=== PATIENT | female | born 1960 | race Caucasian/White ===

== ENCOUNTER 2022-07-03 18:42 | Inpatient (IN) | payer OTHER ==
[~2022-07-03] VITALS: Ht 162.6 cm; Wt 63.4 kg
--- NOTE | 2022-07-04 01:15 | NUR ---
BEDISED REPORT RECEIVED FROM OSVALDO Weeks RN IN THE ER. PT TRANSPORTED VIA STRETCHER BY THIS RN TO MED SURG ROOM 118.
--- NOTE | 2022-07-04 01:55 | NUR ---
PT ASSESSMENT COMPLETE. PT HAS BEEN HEAVILY MEDICATED WITH IV PAIN MEDS AND ATIVAN FOR HER PAIN AND AGITATION WITH THE PAIN, HARD TO OBTAIN MEDICAL HX FROM PATIENT, SHE DOES DENY HAVING ANY FAMILY GIVES A PHONE NUMBER FOR A FRIEND TO MARIA D Hoyos RN CHARGE NURSE AND GIVES PERMISSION TO CALL. PT HAS COME FROM ER WITH A AYALA, THIS WAS DRAINED UPON ARRIVAL TO ROOM. PT HAS TWO PATENT IV SITES. PT'S SKIN CHECKED NO SIGNS OF SKIN BREAKDOWN. PT'S ABDOMEN IS DISTENDED AND "HARD"
--- NOTE | 2022-07-04 02:19 | NUR ---
CHECKED IN ONPATIENT SHE IS ASLEEP, HER EYES ARE CLOSED AND SHE IS SNORING, RESPIRATORY RATE IN MID 20'S, HAS OXY MASK TO FACE FOR HER COMFORT. RAILS UP X 4 FOR HER SAFETY. BED ALARMS ARE ON.
--- NOTE | 2022-07-04 02:48 | NUR ---
PT SET UP ON THE STAFF HOME THERAPY RN,PT IS QUITE DROWSY BUT WAKES UP. MARIA D BURGESS INSTRUCTING PT ON STAFF HOME THERAPY RN USE ON HOW TO USE TO BUTTON, PT NODS IN UNDERSTANDING AND PUSHES BUTTON.
--- NOTE | 2022-07-04 02:57 | NUR ---
WALKED INTO ROOM, WHICH HAS BEEN DARKENED FRO PT COMFORT. PT HAS DIRECTOR NEW PRODUCT BUTTON WITH HAD ON IT, HER EYES ARE CLOSED, RR, 22. CAN BE HEARD SNORING OCCASIONALLY.
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
--- NOTE | 2022-07-04 03:37 | NUR ---
PT CONTINUES TO SLEEP, RR 26, HAS OXY MASK. PT HAS PRECISION INSTRUMENT AND TOOL MAKER BUTTON IN HER LEFT HAND. PT IS NOT MOANING OR WRITHING.
--- NOTE | 2022-07-04 03:39 | NUR ---
CALLED THE [phone], LEFT A MESSAGE PER PT REQUEST.
--- NOTE | 2022-07-04 05:16 | NUR ---
CHECKED ON PATIENT. REMAINS SUPINE ON BED, HOB SLIGHTLY ELVATED, OXYMASK ON [address] RESPIRATIONS 24, PATIENT SNORING. BRADLEY LINEBACKER CREWMEMBER BUTTON REMAINS IN HER LEFT HAND
--- NOTE | 2022-07-04 06:00 | NUR ---
IN ROOM WITH MARIA D BURGESS, CHARGE NURSE. BEATER OPERATOR PUMP CLEARED FOR THIS SHIFT AT 0.8 MG. PT IS ASLEEP BUT OPENS EYES AND PT ASKED HOW SHE WAS DOING ASKED IF SHE WAS IN ANY PAIN NODS HER HEAD "NO" AND ASKED IF SHE NEEDS TO PUSH HER BEATER OPERATOR BUTTON SHE SHAKES HER HEAD "NO" PT APPEARS TO BE COMFORTABLE IS NOT MOANING OR WRISTHING AROUND PT EXHIBITED IN ER AND WHEN SHE WAS ADMITTED. CALL LIGHT IS IN REACH, BEATER OPERATOR BUTTON IN HER LEFT HAND PT NODDED HER HEAD "YES" WHEN ASKED IF SHE UNDERSTOOD USING THE BUTTON FOR THE BEATER OPERATOR.
--- NOTE | 2022-07-04 07:16 | NUR ---
REPORT RECEIVED FROM ADITYA BRUSH. PT RESTING IN BED ON BACK. PT NONVERBAL BUT NODS AND SHAKES HER HEAD IN ANSWER TO QUESTIONS. PT DENIES PAIN AND NAUSEA. PT REQUESTS CHAPSTICK FOR DRY LIPS. PT REMAIN ON 1L O2 BY OXYMASK FOR COMFORT. TRAVEL MANAGER IN PLACE. CALL BUTTON IN PTS HAND. TRAVEL MANAGER BUTTON IN PTS HAND. NO ADDIITONAL NEEDS AT THIS TIME. BED RAILS UP.
--- NOTE | 2022-07-04 10:05 | NUR ---
THIS RN TO ROOM TO CHECK ON PT. PT VISITING WITH DESMOND. PT ABOE TO TALK WITH CLIN NURSE IN SHORT PHRASE SEGEMENTS. INFORMATION GIVEN TO CHAPFLETCHER FROM PT REGARDING CONTACTS TO FRIENDS. PT REPORTS 3/10 PAIN ABDOMEN, ESPICALLY RIGHT SIDE. PT USING TECHNICAL SOLUTION ARCHITECT PUMP AND PUSHING HER BUTTON PRN. PT OREINTED TO ALL. ANSWERS QUESTIONS APPRPRIATLY. PT VERBALIZES UNDERSTANDING OF PLAN OF CARE/COMFORT. PT CONTINUES TO REPORT SEVERE PAIN IF MOVED AND REQUESTS TO REMAIN IN SUPIN POSITION WIHT HEAD OF BED ELEVATED TO 19 DEGREES. PT REMAINS IN THIS POSITION PER REQUEST. RR OF 20. PT REMAINS ON 1L O2 BY OXYMASK FOR COMFORT, ORAL CARE PROVIDED WITH SUCTION IN PLACE. MOUTH MOISTERIZER APPLIED. CHAP SITCK APPLIED. FACE, FEET AND HANDS WASHED, LOTION APPLIED. CLOUDY YELLOW URINE NOTED IN AYALA CATHETER. 75ML CLOUDY YELLOW URINE REMOVED FROM AYALA CATHETER. ICE CHIPS PROVIDED PER PT REQUEST. NO ADDITIONAL NEEDS AT THIS TIME. CALL LIGHT WITHIN REACH. BED RAILS UP. BED ALARM ON.
--- NOTE | 2022-07-04 11:32 | NUR ---
PATIENT RESTING PEACEFULLY. MOLDED FRAMES ASSEMBLER AND CALL BUTTON IN REACH. PATIENT ABLE TO EAT ICE CHIPS INDEPENDENTLY. DENIES NEEDS AT THIS TIME
--- NOTE | 2022-07-04 12:34 | NUR ---
PATIENT RESTING. DENIES PAIN AT THIS TIME. CONCRETE BLOCK MASON BUTTON AND CALL LIGHT IN REACH. REPORTS COMFORTABLE AT THIS TIME AND REQUEST NOT TO BE REPOSITIONED
--- NOTE | 2022-07-04 12:51 | NUR ---
THIS RN TO ROOM TO CHECK ON PT. PT RPEORTS PAIN IS WELL CONTROLLED WITH ROUGH ROUNDER MACHINE PUMP. PT THEN BEGINGS VOMITING BRIGHT GREEN FLUID ~300ML. HEAD OF BED LIFTED. SUCTION APPLIED. MEDICAITON GIVEN (SEE MAR). IV ASSESSED FOR BLOOD REUTRN EVERY 5ML OF PHENEGRAN INFUSION, BLOOD RETURN NOTED EACH TIME. IV FLUSHED AND SALINE LOCKED, ALCOHOL CAP APPLIED. ORAL CARE DONE WITH SUCION IN PLACE INCLUDING MOUTH WASH, TOOTH BRUSH, AND MOUTH MOISTURIZER. PT REPORTS "THAT FEELS BETTER." PT REPORTS PAIN AFTER EMESIS , ROUGH ROUNDER MACHINE BUTTON ENCROAUGED WHICH PT USES. NO ADDITIONAL NEEDS AT THIS TIME. CALL LIGHT WITHIN REACH. BED RAILS UP.
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
--- NOTE | 2022-07-04 14:33 | NUR ---
THIS RN TO ROOM TO CHECK ON PT. PT USES CALL LIGHT TO ASK FOR ICE CHIPS. ICE CHIPS PROVIDED. PT DENIES NAUSEA. PT REPORTS "IT HURTS RIGHT HERE." POINTING TO RIGHT SIDE OF ABDOMEN. PT ENCORUAGED TO PUSH ICE HANDLER BUTTON WHICH SHE DOES. FLACC SCORE OF 2/10. PT DROWSY BUT ARROUSABLE. PT DRIFTS BACK TO RESTING WITH WITH EYES CLOSED, RESPRIATIONS EVEN AND UNLABORED. CALL LIGHT IN RIGHT HAND. ICE HANDLER BUTTON IN LFET HAND. NO ADDITIONAL REQUESTS OR COMPLAINTS. BED RAILS UP. BED ALARM ON.
--- NOTE | 2022-07-04 14:58 | NUR ---
IN WITH PASTOR FINNEGAN TO DISCUSS PATIENT WISHES. PATIENT SAID WHEN THE TIME COMES, SHE WOULD LIKE TO BE CREMATED. SHE DOES NOT HAVE A PREFERNCE ON HOMES AND SHE WISHES THAT HER PRAYER SHALL/QUILT BE GIVEN TO HER FRIEND AND THE WHITE AND RED BAG BE LEFT FOR KAIN TO GIVE TO A FRIEND WELL. (KAIN WILL TAKE QUILT AND BAG AND MAKE SURE IT GETS TO PATIENTS FRIEND)
--- NOTE | 2022-07-04 15:03 | NUR ---
PT HAS DECIDED TO GO ON COMFORT CARE. PT HAS DECIDED TO BE CREMATED AND BE BURIED WITH FRIEND DONNA IF WE CAN LOCATE HIM. PT REQUESTED HER PRAYER QUILT BE GIVEN TO HER FRIEND JACIEL. WILL MAKE THAT HAPPEN. HAD PRAYER WITH PT, WILL UPDATE MACHINE GROUP LEADER ROLLER STAKER
--- NOTE | 2022-07-04 15:13 | NUR ---
THIS RN TO ROOM TO CHECK ON PT. PT RESTING WITH EYES CLOSED, RESPIRATIONS EVEN AND UNLABORED. RASS SCORE OF -1. FLACC SCORE OF 1/10 FOR OCCATIONAL GRIMACE. NO ADDITIONAL NEEDS AT THIS TIME. PT ALLOWED TO REST UNDESTURBED. CALL LIGTHW IN RIGHT HAND. ARTILLERY SPECIALIST BUTTON NEAR LFT HAND. BED RAILS UP. BED ALARM ON.
--- NOTE | 2022-07-04 15:21 | NUR ---
CNDIPIKA IN WITH PT CHECKING VSS WHILE I WAS VISITING WITH PT REGARDING END OF LIFE DECISIONS
--- NOTE | 2022-07-04 16:09 | NUR ---
THIS RN TO ROOM TO CHECK ON PT. PT RESTING IN BED WITH EYES CLOSED, RESPIRATIONS EVEN AND UNLABORED. HEAD OF BED ELEVATED TO 35 DEGREES. FLACC SCORE OF 0/10. RASS SCORE OF -1. PT RESPONDS TO TOUCH BUT REMAINS ASLEEP. CALL LIGHT IN RIGHT HAND. SPINNER HYDRAULIC BUTTON IN LEFT HAND. NO ADDITIONAL NEEDS AT THIS TIME. BED RAILS UP.
--- NOTE | 2022-07-04 17:09 | NUR ---
PT HERE FOR COMFORT CARE AND PAIN CONTROL. PT REMAINS ON BED REST THIS SHIFT AND DECLINES REPOSITIONING. RASS SCORES OF -1 THROUGHOUT SHIFT. GREEN EMESIS NOTED THIS SHIFT WITH PRN NAUSEA MEDICAITONS GIVEN. STONE MILL OPERATOR PAIN PUMP REMAINS IN PLACE WITH PT PUSH BUTTON APPROPRIATLY. ORAL CARE DONE X2 WITH SUCTION IN PLACE. ABDOMEN VERY DISTENDED AND PAINFUL WITH ANY PALPATION. PASTROAL CARE TO BEDSIDE AND ASSISTING PT WITH CONTACTING LOVED ONES. PT REMAINS OREINTED AND RESPONDING TO QUESTIONS APPROPRAILTY. AYALA CATHETER IN PLACE WITH INSUFFICIENT CLOUDY YELLOW URINE. PT USING 1L O2 BY OXYMASK FOR COMFORT. PT USES CALL LIGHT INCONSISTANTLY. INTENTIONAL ROUNDING TO MEET NEEDS.
--- NOTE | 2022-07-04 17:15 | NUR ---
MED REC COMPLETE
--- NOTE | 2022-07-04 17:55 | NUR ---
THIS RN TO ROOM TO CHECK ON PT. VOYAGE MANAGEMENT SYSTEM OPERATOR PUMP ALARMING, NEW CARTRIAGE NEEDED. VOYAGE MANAGEMENT SYSTEM OPERATOR CLEARED OF 4.7MG DELIVERED SO FAR THIS SHIFT. VOYAGE MANAGEMENT SYSTEM OPERATOR STATES: COMPLETED 11, PARTIAL 1, AND DENIED 1. PT RESTING WITH EYES CLOSED, RESPIRATIONS EVEN AND UNLABORED. PT DOES NOT AWAKEN TO VOICES IN ROOM. PT ALLOWED TO REST. CALL LIGHT WIHTIN REACH. BED RAILS UP.
--- NOTE | 2022-07-04 18:14 | NUR ---
Checked with BRYAN at [facility] to see if they could possibly take a comfort care pt. He states he doesn't think they will have any more beds open this week.
--- NOTE | 2022-07-04 18:45 | NUR ---
THIS RN TO ROOM TO CHECK ON PT. PT RESTING WITH EYES CLOSED, RESPIRATIONS EVEN AND UNLABORED. PT AWAKENS TO VOICE AND LIGHT TOUCH. RASS SCORE OF -1. PT DENIES PAIN AND NAUSEA. CATHETER CARE DONE. AYALA CATHETER EMPITED OF 78ML CLOUDY YELLOW URINE. PT DRIFTS BACK TO SLEEP QUICKLY. FACE WASHED PER PT REQUEST. NO ADDITIONAL NEEDS AT THIS TIME. CALL LIGHT WIHTIN REACH. BED RAILS UP.
--- NOTE | 2022-07-04 19:58 | NUR ---
RECEIVED REPORT FROM DAY SHIFT RN. PATIENT IS RESTING IN BED WITH EYES CLSOED, RR 21. CALL LIGHT IN REACH.K PHYSIOTHERAPY PRACTICE MANAGER BUTTON IN REACH.
--- NOTE | 2022-07-04 21:08 | NUR ---
PATIENT REPOSITIONED IN BED. AYALA EMPTIED. INTAKE AND OUTPUT RECORDED. PATIENT PROVIDED ICE CHIPS. PATIENT DENIES ANY NEEDS. CALL LIGHT AND CERTIFIED REGISTERED NURSE ANESTHETIST BUTTON IN REACH. PATIENT GIVEN PRN MEDICATION FOR ANXIETY.
--- NOTE | 2022-07-04 23:09 | NUR ---
PATIENT IS RESTING IN BED, RR 19. PATIENT APPEARS COMFORTABLE. CALL LIGHT AND NEUROLOGY TEACHER BUTTON IN REACH.
--- NOTE | 2022-07-05 00:32 | NUR ---
PATIENT IS RESTING IN BED WITH EYES CLSOED, RR 19. CALL LIGHT AND PC ABUTTON IN REACH. BED ALARM ON FOR SAFETY.
--- NOTE | 2022-07-05 06:34 | NUR ---
[facility] DOWNTIME [phone], SEE PAPER CHARTING.
--- NOTE | 2022-07-05 06:52 | NUR ---
PATIENT WISHES TO NOT WEAR HER OXYGEN ANYMORE. PRN ANXIETY MEDICATION GIVEN PER ORDER. NO FURTHER NEEDS NOTED. CALL LIGHT IN REACH. COMPOSITE BOND TECHNICIAN BUTTON IN REACH. BED ALARM ON FOR SAFETY.
--- NOTE | 2022-07-05 07:14 | NUR ---
RECEIVED REPORT FROM TERESA BURGESS. PATIENT RESTING. NO S/S OF PAIN OR DISTRESS. ADMINISTRATIVE SUPPORT MANAGER BUTTON IN REACH. CALL LIGHT IN REACH. BED RAILS UP.
--- NOTE | 2022-07-05 08:30 | NUR ---
PATIENT RESTING. DENIES PAIN OR DISCOMFORT WHEN ASKED. PATIENT HAS CALL LIGHT IN REACH AND WARDROBE ASSISTANT IN HAND. BED RAILS UP
--- NOTE | 2022-07-05 09:10 | NUR ---
PATIENT RESTING. NO S/S OF PAIN OR DISCOMFORT. PATIENT HAS CLIENT DEVELOPMENT CONSULTANT BUTTON IN HAND. PATIENT EASILY AROUSED WITH VERALE STIMULI. CALL LIGHT IN REACH
--- NOTE | 2022-07-05 10:13 | NUR ---
ORAL CAN CATH CARE COMPLETE. PATIENT SHAKES HEAD "NO" WHEN ASKED IF SHE IS IN PLAN. LEAD INSTALLER BUTTON IN HAND. PATIENT HAS LOWER URINE OUTPUT, CLOUDY URINE. WHEN ASKED IF SHE WOULD LIKE RESPOSITIONING PATIENT SHOOK HEAD "NO". NO OTHER NEEDS AT THIS TIME
--- NOTE | 2022-07-05 11:22 | NUR ---
PATIENT RESTING. NO S/S OF PAIN OR DISCOMFORT. PATIENT REQUEST NOT TO BE REPOSITIONED AT THIS TIME. EASILY AROUSED WITH VERBAL STIMULI. CALL LIGHT AND POWDER MIXER BUTTON IN REACH.
--- NOTE | 2022-07-05 12:02 | NUR ---
PATIENT RESTING. WHEN ASK IF SHE HAS PAIN, PATIENT SHOOK HER HEAD "YES". REMINDED PATIENT TO PUSH SMALL PACKAGE AND BUNDLE SORTER CLERK BUTTON. PATIENT WEAKER TODAY THAN YESTERDAY. PATIENT WARM TO TOUCH, 99.1F TEMPORAL. ASKED PATIENT IF SHE WANTS A COOL RAG ON HER HEAD, PATIENT STATED "YES". LOW URINE OUTPUT. PATIENT REFUSED SENNA AND DOES NOT WANT TO BE REPOSITIONED AT THIS TIME. CALL LIGHT IN REACH
--- NOTE | 2022-07-05 14:20 | NUR ---
SPIRITAL CARE AT BEDSIDE. PATIENT TACHYPNEIC RESPIRATIONS 26bpm. PATIENT REQUEST OXY MASK FOR COMFORT. ORAL CARE COMPLETE. PATIENT REPOSITIONED. CALL LIGHT AND METAL CASKET ASSEMBLER BUTTON IN REACH
--- NOTE | 2022-07-05 14:23 | NUR ---
ADTIYA BUI IN TO PT'S RM WITH ME. PT SEEMS MUCH WEAKER TODAY, ASKED IF SHE WOULD LIKE O2 MASK-KNODDED YES. ADITYA BUI PLACED. HAD PRAYER WITH PT, VERY DIFFICULT FOR PT TO GET ANY WORDS OUT. PT HELD MY HAND I VOICED A PRAYER. SHE SMILED. GAVE BLESSING AND WILL FOLLOW
--- NOTE | 2022-07-05 15:07 | NUR ---
PATIENT RESPIRATION RATE IS 24-26 bpm. PATIENT GIVEN ATIVIAN FOR COMFORT. OXY MASK IN PLACE FOR COMFORT AT 1L. CALL LIGHT AND AUTOMOTIVE SALES ASSOCIATE BUTTON IN REACH. BED RAILS UP
--- NOTE | 2022-07-05 16:00 | NUR ---
[facility]ed [facility] and spoke with Aaliyah Crews, they do not have this pt in their system. Pt or family would need to be able to give them financial info to start process for correction medicaid for placement.
--- NOTE | 2022-07-05 16:30 | NUR ---
Discussed this pt. with Nadege Ku, management. Lupe was able to sign pt up for DMAP. has spoken with pt and her friend. Pt does not appear to have any family in the area. I called and spoke with the [facility] in [place], [place]. It is unclear if they accept [place] Medicaid, but they did agree to review the chart. Chart faxed to [phone]. Phone number [phone].
--- NOTE | 2022-07-05 16:59 | NUR ---
PATIENT WEAKER TODAY THAN YESTERDAY AND LESS VERBAL. ORAL CARE PROVIDED X 2. PATIENT PROVIDED ICE CHIPS. URINE CATH DRAINING LOW URINE OUTPUT OF 50 MLS THIS SHIFT OF PURLENT URINE. DESIGN SUPERVISOR SYRINGE REPLACE AND PUMP CLEARED. PATIENT REPOSITIONED AT THIS TIME WITH BEEF TRIMMER ASSIST. PASTROL CARE VISITED. KAIN FROM [facility] REPORTS WHEN THE PATIENT PASSES BLANKET AND SOME BELONGINGS NEED TO BE PLACED IN PASTROL CARE OFFICE. PATIENT HAS SPOKEN WISHES OF WHERE THEY WILL BE SENT. CALL LIGHT AND DESIGN SUPERVISOR BUTTON IN REACH
--- NOTE | 2022-07-05 19:24 | NUR ---
BEDSIDE REPORT RECEIVED FROM RAMYA BURGESS. CARE TO BE RESUMED BY THIS RN AT THIS TIME. PT RESTING IN BED, RR 24. OXY MASK PLACED FOR COMFORT AND ICE CHIPS OFFERED. EDUCATED PT ON USE OF PROMOTION MANAGER. PT RESPONDING WITH HEAD NODS BUT NO VERBAL RESPONSE. CALL LIGHT IN REACH.
--- NOTE | 2022-07-05 20:52 | NUR ---
PT RESTING IN BED WITH EYES CLOSED, RR 19. PERSONAL AND ORAL CARE COMPLETED. COLD WASHCLOTH PLACED ON FOREHEAD FOR COMFORT. PT REPOSITIONED AND ICE CHIPS OFFERED. ATIVAN GIVEN FOR COMFORT PER ORDER. NO FURTHER NEEDS AT THIS TIME. CALL LIGHT AND SETTER COLD ROLLING MACHINE BUTTON IN REACH. BED ALARM ON FOR SAFETY.
--- NOTE | 2022-07-05 21:33 | NUR ---
PT RESTING IN BED WITH EYES CLOSED, RR 17. TEST GRADER BUTTON AND CALL LIGHT IN REACH. NO FURTHER NEEDS AT THIS TIME.
--- NOTE | 2022-07-05 22:18 | NUR ---
PT RESTING IN BED WITH EYES CLOSED, RR 19. COLD WASHCLOTH REPLACED ON FOREHEAD FOR COMFORT. CONTROL SYSTEMS DRAFTING OFFICER BUTTON AND CALL LIGHT IN REACH. BED ALARM ON FOR SAFETY.
--- NOTE | 2022-07-05 23:25 | NUR ---
PT RESTING IN BED WITH EYES CLOSED, RR 21. MOUTH CARE PROVIDED. PT AROUSABLE BUT DOES NOT RESPOND VERBALLY. CALL LIGHT AND CORPORATE PILOT BUTTON IN REACH.
--- NOTE | 2022-07-06 01:12 | NUR ---
PT RESTING IN BED WITH EYES CLOSED, RR 23. TEMPURATURE 100.6 F VIA TEMPORAL ROUTE, COLD WASHCLOTHES PLACED ON FOREHEAD AND NECK. DUE TO WORK OF BREATHING AND ANXIOUSNESS, ATIVAN GIVEN PER ORDERS. EDUCATED ON USE OF CABLE ASSEMBLER BUTTON. CABLE ASSEMBLER BUTTON AND CALL LIGHT IN REACH. NO FURTHER NEEDS.
--- NOTE | 2022-07-06 03:25 | NUR ---
PT RESTING IN BED. PT AROUSABLE TO VOICE BUT IS UNABLE TO RESPOND VERBALLY. ORAL CARE PERFORMED AND PT REMINDED OF USE OF HARNESS WORKER. CALL LIGHT IN REACH. NO FURTHER NEEDS AT THIS TIME.
--- NOTE | 2022-07-06 06:00 | NUR ---
PT RESTING IN BED, RR 22. ORAL CARE AND ICE CHIPS PROVIDED. COLD WASHCLOTH PLACED ON FOREHEAD FOR COMFORT. PT UNABLE TO COMMUNICATE VERBALLY BUT AROUSES TO VOICE. EDUCATED ON ELECTRICAL CONTROL ASSEMBLER PUMP AND USE FOR PAIN MANAGEMENT. HR 128, 88% ON RA, 98.8 F AXILLIARY. RESPIRATIONS LABORED AND IRREGULAR. EMPTIED AYALA OF DARK YELLOW URINE WITH THE TOTAL OF 60 CC OUT FOR THE SHIFT. CALL LIGHT IN REACH AND BED ALARM ON FOR SAFETY. DENIES FURTHER NEEDS AT THIS TIME.
--- NOTE | 2022-07-06 07:30 | NUR ---
REPORT RECEIVED. PT LYING IN BED WITH EYES CLOSED. NO SIGNS OF DISCOMFORT PRESENT. DILAUDID LETTER CARRIER INFUSING AT 0.2MLS/HR. NS AT 15ML/HR.
--- NOTE | 2022-07-06 08:30 | NUR ---
ROUNDED ON PT. ASSESSMENT COMPLETED AND DOCUMENTED. RR 20 AT THIS TIME. NO SIGNS OF DISCOMFORT. PT WITH EYES CLOSED AND RELAXED IN BED. INSTRUCTIONAL ASSISTANT INFUSING PER ORDER. WILL CONT TO MONITOR.
--- NOTE | 2022-07-06 09:30 | NUR ---
ROUNDED ON PT. RR 20. PT RELAXED. FLOATED ON PILLOWS. NO CONCERNS. WILL CONT TO MONITOR.
--- NOTE | 2022-07-06 10:30 | NUR ---
ROUNDED ON PT. AYALA WITH 90MLS CLOUDY URINE OUT. PT ABLE TO OPEN EYES TO VERBAL STIMULI, NO RESPONSES. NO ORAL INTAKE. RR 20.
--- NOTE | 2022-07-06 11:30 | NUR ---
ROUNDED ON PT. RR IS 22. ASSSITED WITH CUT OFF TENDER GLASS FOR POSITION CHANGE. AFTER CHANGING PT TO RIGHT SIDE, PT STARTED MOANING CONTINUOULSY. ADIVAN PRN ADMINISTERED. DR IN FOR ROUNDS. DISCUSSED INCLUDING MORPHINE IV PUSH FOR BREAKTHROUGH PAIN. DR AGREES TO PLACE ORDER AND CHANGE LAUNDRY ROUTE DRIVER TO CONTINUOUS ONLY SINCE PT IS NOW UNABLE TO ADMINSTERE SELF BOLUS DOSES. PT MOANING DECREASED AFTER ADIVAN DOSE RR STILL 20. ORAL CARE COMPLETED BY CUT OFF TENDER GLASS.
--- NOTE | 2022-07-06 12:55 | NUR ---
SCRAP BUNCH MAKER CHANGED TO CONTINUOUS RATE ONLY. RR 26. PRN 2MG MORPHINE ADMISNTERED. AFTER 10 MINUTES. RR DECREASED TO 16. PT IS NOT GRIMACINING OR SHOWING SIGNS OF PAIN NOW.
--- NOTE | 2022-07-06 13:00 | NUR ---
Received call from Aaliyah at [facility]. They will accept this pt today. UPdated pt is now on a pain pump and sedated. She she states as pt does not have any family to sign for her, she would need to be awake enough to sign the hospice paperwork. She suggests, pt transition to fentanyl patch and then stop the pain pump. They would take this pt tomorrow if she is awake enough to sign her papers. Charge nurse and Dr. Albert updated and will transition meds. Aaliyah will send the orders [facility] orders with a check list to be completed. Pt will need to go by nonemergent transport if she able to go.
--- NOTE | 2022-07-06 14:00 | NUR ---
Dr. Prince stopped by my office to check on Staci. He is unable to remember if pt has family members since he has not seen her since the late 70's. We have not been successful in finding any family members at this time.
--- NOTE | 2022-07-06 14:14 | CONS ---
[facility] [address], [place] [address] Signed DATE OF CONSULTATION: TIME: 10:30 p.m. PROBLEM: Abdominal distention, large pelvic mass, left perirenal process, and concurrent anemia. HISTORY OF PRESENT ILLNESS: This 62-year-old white woman is known to me in the distant past as a student at [employer], and is a year older than me. I have not seen her since that time (1976). She presented to the emergency room with generalized abdominal pain and distention, was evaluated thoroughly by Dr. Omer and found to be in moderate discomfort from abdominal distention. Additionally, her creatinine was noted to be greater than four. On that basis, she underwent a non IV contrast CT scan of the abdomen, which demonstrated an extremely large pelvic mass emanating higher than the umbilicus (20-week uterus size) as well as bilateral hydroureter with possible caliceal blowout on the left side, possibly related to obstructed ureter at the pelvis bilaterally. Her hemoglobin was noted to be 4 with hematocrit of 15 and on that basis, she has been transfused 2 units of blood. She has not been hypotensive. The patient requested me specifically for evaluation and treatment. On that basis, I am responding to the emergency room consultation. She does have persistent left-sided abdominal pain. No posterior thoracic or lumbar pain. She denies prior surgical intervention of the abdomen in any way. She has never been and currently lives alone. She is return to live in [place] most recently. PHYSICAL EXAMINATION: GENERAL: A relatively thin white woman, who is in moderate discomfort and distress. She is mildly tachypneic. She is alert and oriented, however. NECK: Her trachea is midline. CHEST: Shows shallow rapid breathing to a degree. Pulse is regular. ABDOMEN: Distende and doughy, with tenderness diffusely on the left side. 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 She does have bilateral proximal leg mottling to a degree. Her dorsalis pedis pulse on the left and right is intact 3/3. RADIOGRAPHIC DATA: I reviewed her CT scan in detail. She has a very large pelvic mass, which is smooth in its contour and likely represents the uterus rather than ovarian neoplasm proper. The Electronically Signed By: KAYLEY SANDOVAL MD 07/06/22 1414 PATIENT NAME: MONISHA CASILLAS CONSULTATION DATE OF : 58 REPORT #: [id number] PHYSICIAN: KAYLEY SANDOVAL MD PCP: NO PRIMARY CARE PHYSICIAN REPORT IS CONFIDENTIAL AND NOT TO BE RELEASED WITHOUT AUTHORIZATION [facility] [address], [place] [address] Signed right kidney appears normal. Bilateral hydronephrosis is noted, however, on this noncontrast CT scan, t he left kidney is amorphous in its appearance and given her anemia, concern is maintained for hemorrhage associated with the left kidney and retroperitoneum. Aorta and cava are not easily identified by me and I have yet to see the report of the radiologist, though it has been completed, I am told. ASSESSMENT AND PLAN: The findings noted on her clinical exam as well as imaging studies are concerning not just for what may be a benign, but enlarged pelvic mass causing bilateral ureteral obstruction, but also amorphous findings of the left kidney, which may represent calyceal blowout of the renal pelvis, but may also represent perinephric hemorrhage; definition of the offending lesion is poor on the basis of no GI or IV contrast. The possibility of a myelolipoma of the adrenal with rupture is always a consideration, however, uncommon. Given the bilateral ureteral obstruction, a reasonably probable explanation for the appearance of the left kidney would be calyceal disruption due to excessive hydroureter on the left side. Such a finding would not explain her anemia, however. She is not noted to have any gastrointestinal blood loss, hematemesis, blood per rectum, or other source of known hemorrhage. Her hemodynamics are surprisingly stable and this may represent bleeding that has occurred in a nonacute way. I have recommended to Dr. Omer, emergency room physician that she will be transferred to a higher level of care, for which there will be special expertise for ureteral stenting as appropriate, blood bank with blood products (more than red blood cells) and a consideration for possible angiographic capability for control of hemorrhage if in fact that is the underlying problem. Open operative intervention to control bleeding in the retroperitoneum may be exceedingly challenging under the circumstances of the giant pelvic mass assuming most of the abdominal cavity as noted on the CT scan. Transfusion therapy has been initiated as appropriate and continued monitoring of her hemodynamic status is appropriate as well. MD DENNYS Ribera/MERNAL /[id number] cc: Dr. Omer Electronically Signed By: KAYLEY SADNOVAL MD 07/06/22 1414 PATIENT NAME: MONISHA CASILLAS CONSULTATION DATE OF : 58 REPORT #: [id number] PHYSICIAN: KAYLEY SANDOVAL MD PCP: NO PRIMARY CARE PHYSICIAN REPORT IS CONFIDENTIAL AND NOT TO BE RELEASED WITHOUT AUTHORIZATION [address] [place] [address] Signed Copies: ~ Electronically Signed By: KAYLEY SANDOVAL MD 07/06/22 1414 PATIENT NAME: MONISHA CASILLAS CONSULTATION DATE OF : 58 REPORT #: [id number] PHYSICIAN: KAYLEY SANDOVAL MD PCP: NO PRIMARY CARE PHYSICIAN REPORT IS CONFIDENTIAL AND NOT TO BE RELEASED WITHOUT AUTHORIZATION
--- NOTE | 2022-07-06 15:30 | NUR ---
PAUSED DILAUDID EMAIL ADMINISTRATOR TO SEE IF PT IS ABLE TO WAKE UP TO SIGN PAPERS. AT THIS TIME PT OPENS EYES TO VERBAL STIMULI. DOES NOT RESPOND VERBALLY OR OTHER. WILL CONT TO MONITOR
--- NOTE | 2022-07-06 16:30 | NUR ---
ROUNDED ON PT. PT WAKES TO PAINFUL STIMULI ONLY. RR IS 22. POLICE MANAGER STILL STOPPED AT THIS TIME. REPOSITIONED PT TO BACK.
--- NOTE | 2022-07-06 18:30 | NUR ---
ROUNDED ON PT. PT RR IS 20. PT MOANING. NOT ANSWERING ANY QUESTIONS. RESPONSIVE TO PAINFUL STIMULI. SAYS "YEAH" TO NAME THEN DOES NOT ANSWER DOES NOT OPEN EYES. QUESTIONS OR FOLLOW COMMANDS.
--- NOTE | 2022-07-06 22:05 | NUR ---
Pt IV alarming, in to check on patient, restart TKO IV fluids. Pt is grimacing, breathing 24-26 breaths/minute. Pt turns face toward direction of my voice, nods head when asked if she needs a cool cloth on her forehead, moans out and grimaces. Dilaudid FACILITY MECHANIC had been paused for 4 hours, pt did not wake up enough to answer questions or be conversant, only moaned and nodded when stimulated, did not open her eyes for me or Merry. Merry and I agreed to restart Dilaudid FACILITY MECHANIC for patient comfort for the night, on continuous infusion only at 0.2mg/hr. Dr Albert notified, agrees with plan of comfort for patient for the night and to use PRN medications as ordered for patient comfort.
--- NOTE | 2022-07-07 01:00 | NUR ---
pt with eyes closed, resp @20, laid gown over chest, touched pt hands, no response.
--- NOTE | 2022-07-07 02:39 | NUR ---
PT MEDICATED WITH MORPHINE, ATIVAN. SHE HAD BEEN MOANING LOUDLY, MOVING ARMS. CURRENTLY SHE IS PEACEFUL LOOKING, NO MOVEMENT IN ARMS, HANDS, RESP CONTINUE LABORED, @20
--- NOTE | 2022-07-07 03:44 | NUR ---
EYES CLOSED, RESP EVEN, SL LABORED AT 20. NO MOVEMENT WITH ARMS, EYES WHEN TOUCHED. NO MOANING. SERVER SUPPORT TECHNICIAN DILAUDID INFUSING PER MARS.
--- NOTE | 2022-07-07 04:45 | NUR ---
CHECKED ON PT, SL LABORED @20, EYES CLOSED, SKIN WARM, NOT HOT, BUT PT HAD PULLED GOWN OFF. GOWN UP OVER CHEST WITH ARMS OUT.
--- NOTE | 2022-07-07 06:38 | NUR ---
resp 20, sl labored, moving arms above head, pulling gown. oral care given, medicated with prn morphine. criminal profiler infusing per order.
--- NOTE | 2022-07-07 07:58 | NUR ---
Patient moving arms above head, facial grimacing and moaning noted. Admin prn Ativan 1mg IV at this time. Patient calmed down shortly after ativan admin. No current needs, personal supplies and call light within reach.
--- NOTE | 2022-07-07 08:41 | NUR ---
PATIENT IN BED AFTER BEING REPOSITIONED. AM CARE COMPLETED. CALL LIGHT WITHIN REACH.
--- NOTE | 2022-07-07 09:01 | NUR ---
Patient just repositioned by drilling field professional staff. Patient moving arms and grimacing. Admin Morphine 2mg IV at this time. Patient's respirations 20/min at this time.
--- NOTE | 2022-07-07 09:17 | NUR ---
Per staff, pt has not awakened. Called and spoke with Kamini at the [facility]. UPdated, pt would not be legally able to sign papers and we are cancelling the admission. She states pt has been accepted, if she does awaken, they will hold her papers and take her.
--- NOTE | 2022-07-07 10:12 | NUR ---
PATIENT LYING IN BED. NO VITALS PER NURSE LISANDRA. I/O'S COMPLETED. FACECARE COMPLETED, AND AYALA DRAINED AND DOCUMENTED. PT HAS NO OTHER NEEDS CALL LIGHT IN REACH.
--- NOTE | 2022-07-07 10:37 | NUR ---
Patient resting on back in bed, eyes closed, respirations 22/min, labored. Patient appears to be comfortable, no notable moaning at this time. IV site patent, BOX CLOSING MACHINE OPERATOR infusing per provder order.
--- NOTE | 2022-07-07 11:25 | NUR ---
Oral care done at this time. Patient repositioned as well. Admin Morphine 2mg iv for pain/comfort at this time. Patient has call light within reach. Patient remains non verbal.
--- NOTE | 2022-07-07 12:07 | NUR ---
CHECKED ON PT, UNRESPONSIVE, CONDITION DETERIORIATING. PRAYED PRAYER OF JUSTIN AND BLAKE, WILL FOLLOW
--- NOTE | 2022-07-07 14:09 | NUR ---
Patient resting, eyes closed, respirations 22/min. Oral care and repositioning done at this time for comfort. Patient appears comfortable, no moaning noted. FISHERIES INSPECTOR infusing per provider order. Call light within reach.
--- NOTE | 2022-07-07 14:13 | NUR ---
PATIENT IN BED, NO VITALS PER NURSE. AYALA DRAINED AND DOCUMENTED. EYE/ FACIAL CARE DONE. CALL LIGHT WITHIN REACH.
--- NOTE | 2022-07-07 16:07 | NUR ---
Patient resting on back in bed, eyes closed, respirations 20/min. Patient remains resting, non responsive to verbal stimuli. Patient repositioned and oral care provided. Patient appears comfortable, no moaning, arms resting to her chest. RIDE MECHANIC dilaudid infusing per provider order. Iglesias remains intact, urine output declining. No current needs, call light within reach.
--- NOTE | 2022-07-07 16:40 | NUR ---
A Lady named Miladis stopped by to briefly visit with patient. Miladis reports she dated patient's brother many years ago and use to be close to the patient. Patient remains comfortable resting in bed, eyes closed, rr 22/min. EARTHMOVING PLANT OPERATOR dilaudid infusing per provider order.
--- NOTE | 2022-07-07 17:02 | NUR ---
Morphine 2Mg IV admin for comfort/pain. Patient grimacing and moving about in bed. Flacc scale 4/10.
--- NOTE | 2022-07-07 18:38 | NUR ---
PATIENT RESTING COMFORTABLY IN BED. REPOSITIONED, AND AYALA DRAINED AND DOCUMENTED. CALL LIGHT WITHIN REACH.
--- NOTE | 2022-07-07 19:20 | NUR ---
PT RESTING IN BED EYES CLOSED, RESP REGULAR AT 16 BPM, NOTED TO HAVE MINIMAL URINE OUT IN AYALA. PT LOOKS RELAXED NO RESTLESSNESS OR MOANING. SHE IS NOT RESPONSIVE TO VOICE.
--- NOTE | 2022-07-07 20:30 | NUR ---
pt resting quielty in bed resp 16 bpm. no distress noted
--- NOTE | 2022-07-07 21:30 | NUR ---
pt resting quietly in bed resp regular at 16 bpm. no distress noted pt body relaxed no moaning or restlessness.
--- NOTE | 2022-07-07 22:20 | NUR ---
PT RESTING IN BED RESP 12 BPM, NO DISTRESS NOTED. ORAL CARE PROVIDED. PT REPOSITIONED.
--- NOTE | 2022-07-08 00:24 | NUR ---
PT RESTING IN BED EYES CLOSED RESP RATE 16 BPM, NO DISTRESS NOTED. RELAXED BODY POSITION, NO MOANING OR GRIMACE NOTED.
--- NOTE | 2022-07-08 01:37 | NUR ---
PT RESTING IN BED EYES CLOSED RESP REGULAR AT 16 BPM. NO DISTRESS NOTED, NO GRIMACE, NO MOANING, BODY IN RELAXED POSITION.
--- NOTE | 2022-07-08 02:41 | NUR ---
PT RESTING IN BED EYES CLOSED, REPOSITIONED, SHE DID NOT RESPOND TO VERBAL STIMULI, SHE IS IN RELAXED POSITION, NO GRIMACE OR MOANS.
--- NOTE | 2022-07-08 04:51 | NUR ---
PT RESTING IN BED, NO DISTRESS, NO RESTLESSNESS, GRIMACE OR MOANING. ORAL CARE PROVIDED, REPOSITIONED. PT CONTINUES TO PRODUCE GOOD URINE OUT, CLOUDY EMPTIED FOR 250ML AT THIS TIME.
--- NOTE | 2022-07-08 05:04 | NUR ---
PT HAS BEEN PROVIDED WITH ORAL CARE AND REPOSITIONED Q2 HOURS. SHE IS NOT VERABL, WILL MOVE ARM FROM TOUCH, NO GRIMACE/RESTLESSNESS/AGITATION OVER SHIFT. PAPER COLORER PROVIDING ADEQUATE PAIN MANAGEMENT. PRODUCING Q.S. URINE OUT IN AYALA
--- NOTE | 2022-07-08 06:28 | NUR ---
PT RESTING IN BED, EYES CLOSED RESP REGULAR 12 BREATH/MIN. NO DISTRESS/RESTLESSNESS/GRIMACE/MOANING.
--- NOTE | 2022-07-08 07:30 | NUR ---
Report from ADITYA Jose. Patient with eyes closed in bed. Allowed to rest. No signs of pain or discomfort at this time.
--- NOTE | 2022-07-08 07:53 | NUR ---
PATIENT RESTING COMFORTABLY IN BED. AM CARE COMPLETED. AYALA DRAINED. NO OTHER NEEDS AT THIS TIME. CALL LIGHT WITHIN REACH.
--- NOTE | 2022-07-08 09:05 | NUR ---
PATIENT LYING IN BED. RESPIRATIONS EVEN. REMAIN ON CONTINUOUS DILAUDID. REPOSITIONED TO BACK AT THIS TIME. ASSESSMENT COMPLETED.
--- NOTE | 2022-07-08 10:01 | NUR ---
PATIENT RESTING IN BED COMFORTABLY. REPOSITIONING AND FACE CARE COMPLETED. NO VITALS PER NURSE. AYALA DRAINED AND DOCUMENTED. CALL LIGHT WITHIN REACH.
--- NOTE | 2022-07-08 12:20 | NUR ---
PATIENT RESTING COMFORTABLY IN BED. FACE CARE AND REPOSITIONING COMPLETED. AYALA DRAINED AND DOCUMENTED. NO OTHER NEEDS AT THIS TIME, CALL LIGHT WITHIN REACH.
--- NOTE | 2022-07-08 15:34 | EKG ---
[facility] [address] [place], [place] [address] Signed Sinus tachycardia Possible Anterior infarct , age undetermined Abnormal ECG No previous ECGs available Confirmed by LANE ADAM MD ([id number]) on 07/08/2022 3:33:57 PM Electronically Signed By: LANE ADAM MD 07/08/22 1534 PATIENT NAME: MONISHA CASILLAS Electrocardiogram DATE OF : 58 PHYSICIAN: LANE ADAM MD REPORT #: [id number] REPORT IS CONFIDENTIAL AND NOT TO BE RELEASED WITHOUT AUTHORIZATION
--- NOTE | 2022-07-08 16:23 | NUR ---
DC INSTRUCTIONS GIVEN TO PATIENT. VERBALIZES UNDERSTANDING.
--- NOTE | 2022-07-08 18:06 | NUR ---
Patient unchanged this shift. Continues on Dilaudid continuously. No PRN medications administered. Urine output beginning to decrease. Respirations increase with cares, resolves quickly.
--- NOTE | 2022-07-08 18:16 | NUR ---
PATIENT RESTING IN BED COMFORTABLY AFTER SOME REPOSITIONING. AYALA DRAINED AND DOCUMENTED. NO NEEDS AT THIS TIME. CALL LIGHT WITHIN REACH.
--- NOTE | 2022-07-08 21:41 | NUR ---
THRESHING DEPARTMENT SUPERVISOR AND PRIMARY RN REPOSITIONED PT. ORAL CARE PERFORMED. PT'S FACE WASHED WITH WARM WASH CLOTH. PT DOES NOT WAKE DURING CARES. NO NONVERBAL S/SX OF PAIN PRESENT. CALL LIGHT IN PT'S REACH. PRIMARY RN REMAINS AT BEDSIDE.
--- NOTE | 2022-07-08 21:42 | NUR ---
PT EYES CLOSED, TACHEIPNEIC TEMP 100.1 AX, NON RESPONSIVE, NON VERBAL NO RESPONSE WHEN TURNED, SKIN CARE AND REPOSITIONING DONE. ORAL CARE DONE. DID BITE ONTO SWAB, NO OTHER RESPONSE. F/C PATENT DRAINING CLOUDY URINE. IVF-DOCUMENTATION SUPERVISOR INFUSING. HEEL PROTECOTRS IN PLACE, BRUISING AREA COCCYX AND R LE. PT ON COMOFORT CARE
--- NOTE | 2022-07-08 23:20 | NUR ---
No changes in assessment, on room air, RESIN SHAVER infusing w/o problems. f/c patent
--- NOTE | 2022-07-09 00:57 | NUR ---
periods of apnea present. calm, repositioned, FUEL TECHNICIAN Dilaudid infusing
--- NOTE | 2022-07-09 02:14 | NUR ---
Continues to be nonverbal and non responsive, ashen colored hot to touch skin, repositioned. oral care done, no response. f/c patent draining small amount of urine. on comfort care
--- NOTE | 2022-07-09 03:53 | NUR ---
repositioned, resp even, unlabored. HELP DESK OPERATOR infusing w/o problems, f/c patent. non verbal, mouth care done, no response. no gag reflex noted. cont on comfort care
--- NOTE | 2022-07-09 06:28 | NUR ---
On room air, Comfort care, Continues to be non verbal and non responsing, no gag reflex noted when doing oral care, does not open eyes or respond when turned and repositioned. flaccid all extremities. Bruising over arm, bilat abdoninal distention and very firm R abd. f/c patent. noted to have increaed echymotic changed up to above knees bilat. overall jaundiced/jenny colored skin WEB SITE PROJECT MANAGER Dilaudid infusing keeping pt comfortable, episodes of tacheipneic at beginign of shift and occassional episodes of apnea noted. call light and oral sponges at bedside
--- NOTE | 2022-07-09 07:30 | NUR ---
07 - went to pts room with incoming RN, pt had no pulse, no resp, no vitals. no response. pt was last checked at 627 and had periods of apnea at that time was non responsive and nonverbal. 07 - Charge nurse and incoming shift notified of above. Dr Puente notified by charge nurse about above information. 07 - Indra packing room supervisor RN notified of above. 0725 - Dr Puente here
--- NOTE | 2022-07-09 09:31 | NUR ---
WAS NOTIFIED BY HOUSE SUPV ADITYA PETERSEN THAT PT HAS PASSED. PT IS NOT A SUITABLE DONOR, HAVE NOT BEEN ABLE TO LOCATE ANY RELATIVES. PT HAD CHOSEN [facility] FOR FINAL ARRANGEMENTS AND TO BE CREMATED. CONTACTED [facility], ASSISTED BY ADITYA SEGURA AND SAUL FROM [facility]. HOME REFUSED TO TAKE PT'S PERSONAL BELONGINGS, WILL BE STORED BY [facility] IN [place] FOR 30 DAYS. EXCHANGED PAPERWORK WITH FARM HELPER. PT REQUESTED HER PRAYER QUILT BE GIVEN TO FRIEND JACIEL CASILLAS. WILL SEE THIS HAPPENS. OFFERED PRAYER OF BLESSING AND COMMITAL.
== END 2022-07-09 07:05 | DRG 951 ==
LOC: ED 18:42 → MS 07-04 00:41
PROVIDERS: ADMIT Family Medicine; ATTEND Internal Medicine
PROC: 30233N1 Transfusion of Nonautologous Red Blood Cells into Peripheral Vein, Percutaneous Approach (ICD-10-PCS; principal; 2022-07-04)
DX: Z51.5 Encounter for palliative care (principal); N15.1 Renal and perinephric abscess; N13.6 Pyonephrosis; N17.9 Acute kidney failure, unspecified; N85.8 Other specified noninflammatory disorders of uterus; N83.8 Other noninflammatory disorders of ovary, fallopian tube and broad ligament; Z66 Do not resuscitate; I46.9 Cardiac arrest, cause unspecified; Z20.822 Contact with and (suspected) exposure to COVID-19; D64.9 Anemia, unspecified; R73.03 Prediabetes; R11.2 Nausea with vomiting, unspecified; I50.9 Heart failure, unspecified
CPT/HCPCS: 36415; 36430; 51702; 71045; 74176; 80053; 81001; 83605; 85025; 85060; 86850; 86900; 86901; 86922; 87040; 87088; 87502; 93005; 93010; 99285-25; J0696; J1170; J2060; J2270; J2405; J2550; J3010; J7030; P9016; U0003